=== PATIENT | male | born 1995 | race Two or more races ===

== ENCOUNTER 2024-07-24 09:51 | Emergency (ER) | payer BC ==
[~2024-07-24] VITALS: Ht 188 cm; Wt 88.5 kg
[2024-07-24] MEDS ORDERED: GUAIFENESIN/DEXTROMETHORPHAN 10ML BLIST.PACK PO STA (13:30)
[2024-07-24] MEDS ORDERED: METHYLPREDNISOLONE SOD SUCC 40 MG VIAL IV STA ×2 (13:30→16:11)
[2024-07-24] MEDS ORDERED: CETIRIZINE HCL 5 MG/5 ML ML PO STA (13:30)
[2024-07-24] MEDS ORDERED: DEXAMETHASONE4 MG PO (13:38)
[2024-07-24] MEDS ORDERED: ZYRTEC10 MG PO (13:38)
[2024-07-24] MEDS ORDERED: BENZONATATE200 M1 PO (13:38)
[2024-07-24] MEDS ORDERED: SINGULAIR10 MG PO (13:38)
[2024-07-24] MEDS ORDERED: LEVOFLOXACIN750 MG PO (13:42)
[2024-07-24] MEDS ORDERED: ALBUTEROL SULFATE 3 ML/2.5 MG AMPUL.NEB IH STA (14:12)
[2024-07-24] MEDS ORDERED: IPRATROPIUM BROMIDE 0.5 MG/2.5 ML AMPUL.NEB IH SCH (14:15)
[2024-07-24 15:58] LABS: HEMATOCRIT 41.9 % (39.0-48.0); MEAN CELL VOLUME 77.6 fL (80.0-100.00); MEAN CORPUSCULAR HEMOGLOBIN 25.9 pg (27.00-32.0); MEAN CORPUSCULAR HGB CONC 33.3 g/dl (32.0-36.0); PLATELET COUNT 98 K/uL (150-450); RED CELL DISTRIBUTION WIDTH 14.3 % (11.5-14.5)
[2024-07-24 16:09] LABS: CALCIUM 9.4 mg/dL (8.5-10.1); CREATININE SERUM 0.99 mg/dL (0.70-1.30); GFR 89.37; POTASSIUM 3.84 mEq/L (3.5-5.1)
[2024-07-24] MEDS ORDERED: levoFLOXacin IN DEXTROSE 5 % 5 MG/ML PIGGYBAG IV STA (16:11)
[2024-07-24 17:08] LABS: ABG PH 7.446 (7.35-7.45); ABG PO2 85.5 mmHg (80-100); ABG pCO2 36.1 mmHg (35-45)
[2024-07-24 17:09] LABS: BASE EXCESS 0.7 mmol/l; BICARBONATE 24.3 mmol/l (23-25); SaO2 96.9 %; Tco2 25.4 mmol/l; allen test SATISFACTORY; o2 21 %; puncture site RADIAL RIGHT
[2024-07-24] MEDS ORDERED: LEVALBUTEROL HCL 1.25 MG/3 ML SOLUTION IH STA (18:45)
[2024-07-24] MEDS ORDERED: BUDESONIDE 0.5 MG/2 ML AMPUL.NEB IH STA (18:45)
== END 2024-07-24 20:12 | disposition home or self-care (01) ==
LOC: ER 09:53
PROVIDERS: General Practice
DX: J18.9 Pneumonia, unspecified organism (principal); R06.03 Acute respiratory distress; Z20.822 Contact with and (suspected) exposure to COVID-19